=== PATIENT | male | born 1995 | race Caucasian/White ===

== ENCOUNTER 2019-05-07 19:50 | Emergency (ER) | payer OTHER ==
[2019-05-07] MEDS ORDERED: Sodium Chloride 0.9% 2.5 ML Syringe FLUSH PRN (20:01)
[2019-05-07] MEDS ORDERED: Sodium Chloride 0.9% 10 ML Syringe FLUSH PRN (20:01)
[2019-05-07] MEDS ORDERED: Sodium Chloride 0.9% 1,000 ML IV ONE (20:01)
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
[2019-05-07 20:41] LABS: CHLORIDE,CL 101 mmol/L (98-107); SODIUM,NA 138 mmol/L (136-148)
--- NOTE | 2019-05-07 22:07 | CR ---
HISTORY: Chest pain and shortness of breath. COMPARISON: 03/22/2018 FINDINGS: A portable erect AP view of the chest was obtained at 21 53 hours. During the interval, the patchy infiltrate in the posterior basilar segment of the left lower lobe has completely resolved. The lungs are clear on today`s study. The heart remains normal in size. The mediastinum is normal in appearance. The osseous structures are normal in appearance for the patient`s age. IMPRESSION: Normal portable chest single view. Complete resolution of previously seen infiltrate in the posterior basilar segment of the left lower lobe. Dictated by Chris Ramirez MD @ May 07 2019 10:05PM Signed by Dr. Chris Ramirez @ May 07 2019 10:06PM
== END 2019-05-07 22:35 | disposition home or self-care (01) ==
LOC: MW.ED 19:50
DX: K29.70 Gastritis, unspecified, without bleeding (principal); E10.9 Type 1 diabetes mellitus without complications; J45.909 Unspecified asthma, uncomplicated; F17.210 Nicotine dependence, cigarettes, uncomplicated; Z79.899 Other long term (current) drug therapy
CPT/HCPCS: 36600; 71045; 80053; 82803; 82962; 83690; 85025; 99284; J7040

== ENCOUNTER 2019-05-07 23:09 | Emergency (ER) | payer OTHER ==
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
== END 2019-05-07 23:59 | disposition home or self-care (01) ==
LOC: MW.ED 23:09
DX: R10.13 Epigastric pain (principal); J45.909 Unspecified asthma, uncomplicated; E10.9 Type 1 diabetes mellitus without complications; F17.210 Nicotine dependence, cigarettes, uncomplicated; Z79.899 Other long term (current) drug therapy; Z79.4 Long term (current) use of insulin; Z88.1 Allergy status to other antibiotic agents
CPT/HCPCS: 82962; 99284

== ENCOUNTER 2019-08-05 14:40 | Emergency (ER) | payer OTHER ==
[2019-08-05] MEDS ORDERED: Sodium Chloride 0.9% 1,000 ML IV ONE (15:30)
[2019-08-05] MEDS ORDERED: Ondansetron 4 MG/2 ML SDV IVPUSH ONE (15:30)
[2019-08-05 15:47] LABS: BLOOD UREA NITROGEN,BUN 6 mg/dL (7.0-18.0); CARBON DIOXIDE,CO2 31.9 mmol/L (21.0-32.0); CHLORIDE,CL 104 mmol/L (98-107); GLUCOSE RANDOM 161 mg/dL (74-106); POTASSIUM,K 3.7 mmol/L (3.5-5.1); SODIUM,NA 143 mmol/L (136-148)
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
== END 2019-08-05 16:42 | disposition home or self-care (01) ==
LOC: MW.ED 14:40
DX: K80.20 Calculus of gallbladder without cholecystitis without obstruction (principal); E10.9 Type 1 diabetes mellitus without complications; F17.210 Nicotine dependence, cigarettes, uncomplicated; Z88.1 Allergy status to other antibiotic agents; Z79.899 Other long term (current) drug therapy
CPT/HCPCS: 80053; 82962; 85025; 96361; 96374; 99283; J2405; J7040; 99282

== ENCOUNTER 2019-08-05 17:45 | Emergency (ER) | payer OTHER ==
[2019-08-05] MEDS ORDERED: Ketorolac 30 MG/ML SDV IVPUSH ONE (17:49)
[2019-08-05] MEDS ORDERED: fentaNYL 50 MCG/ML SDV IVPUSH ONE ×2 (17:49→19:24)
[2019-08-05] MEDS ORDERED: fentaNYL 100 MCG/2 ML SDV ONE ×2 (18:02→19:27)
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
--- NOTE | 2019-08-05 19:31 | US ---
INDICATION: Epigastric pain TECHNIQUE: Ultrasound abdomen limited. Sonographic images of the right upper quadrant were obtained using johnson-scale and color Doppler images. COMPARISON: 05/08/2019 FINDINGS: Liver: Normal in size with mild diffuse fatty infiltration.. No masses. No intrahepatic biliary dilatation. Gallbladder: No stones or sludge. Two gallbladder polyps. Normal wall thickness. No pericholecystic fluid. Positive sonographic Chew sign. Common bile duct: 4 mm. Pancreas: Normal. Right kidney: size cm. Normal echotexture and cortex. No masses, stones, or hydronephrosis. Vasculature: Proximal IVC is normal. IMPRESSION: Diffuse fatty infiltration of the liver. Gallbladder polyps in an otherwise normal appearing gallbladder. Normal common bile duct. Dictated by Daniel Cohen MD @ 08/05/2019 7:26:40 PM Dictated by: Daniel Cohen MD @ 08/05/2019 19:29:25 (Electronically Signed)
[2019-08-05 20:18] LABS: LIPASE 48 U/L (73-393)
--- NOTE | 2019-08-05 20:40 | CT ---
INDICATION: Epigastric pain for 24 hours. COMPARISON: Ultrasound of the abdomen from today. TECHNIQUE: CT examination of the abdomen and pelvis was performed without contrast enhancement using 3 mm thick axial sections from the lung bases through the pubic symphysis. Oral contrast was not administered. Please note that all CT scans at this facility use dose modulation, iterative reconstruction, and/or weight-based dosing when appropriate to reduce radiation dose to as low as reasonably achievable. FINDINGS: In the abdomen, the unenhanced liver is mildly enlarged, reaching the superior iliac crest. It measures 19.0 centimeters in length. The spleen, pancreas, and adrenals are normal in appearance. The unenhanced kidneys are normal in appearance. The gallbladder is normal in appearance. The abdominal aorta is normal in caliber with no sign of dilatation. There is no sign of retroperitoneal mass or adenopathy. The stomach, loops of small bowel, and colon in the abdomen are normal in appearance. In the pelvis, the retrocecal appendix is normal in appearance with no sign of inflammatory process. The loops of small bowel and colon in the pelvis are normal in appearance. The prostate is normal in appearance. There is a small amount of free fluid in the right inferior pelvis, nonspecific. There is no sign of any free air or extraluminal air. The urinary bladder is normal in appearance. There is no sign of pelvic or inguinal mass or adenopathy. The lung bases are clear. The osseous structures are normal in appearance for the patient`s age. IMPRESSION: CT of the abdomen shows mild enlargement of the otherwise normal-appearing liver. The liver measures 19.0 centimeters in length and reaches the superior iliac crest. Normal size and appearance of the spleen. CT of the pelvis shows a small amount of free fluid in the right inferior pelvis, nonspecific. No signs of any free air in the abdomen or pelvis. Please note that all CT scans at this facility use dose modulation, iterative reconstruction, and/or weight-based dosing when appropriate to reduce radiation dose to as low as reasonably achievable. Dictated by Chris Ramirez MD @ Aug 05 2019 8:32PM Signed by Dr. Chris Ramirez @ Aug 05 2019 8:38PM
== END 2019-08-05 21:10 | disposition home or self-care (01) ==
LOC: MW.ED 17:45
DX: E10.43 Type 1 diabetes mellitus with diabetic autonomic (poly)neuropathy (principal); K31.84 Gastroparesis; F17.210 Nicotine dependence, cigarettes, uncomplicated; Z88.1 Allergy status to other antibiotic agents; Z79.899 Other long term (current) drug therapy
CPT/HCPCS: 36415; 74176; 76705; 82150; 83690; 96374; 96375; 96376; 99284; J1885; J3010

== ENCOUNTER 2019-10-15 18:18 | Emergency (ER) | payer OTHER ==
[2019-10-15] MEDS ORDERED: Ondansetron 4 MG/2 ML SDV IVPUSH ONE (18:35)
[2019-10-15] MEDS ORDERED: Sodium Chloride 0.9% 1,000 ML IV ONE ×3 (18:35→20:32)
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
[2019-10-15 19:30] LABS: BLOOD UREA NITROGEN,BUN 17 mg/dL (7.0-18.0); CARBON DIOXIDE,CO2 19.3 mmol/L (21.0-32.0); CHLORIDE,CL 97 mmol/L (98-107); GLUCOSE RANDOM 302 mg/dL (74-106); LIPASE 31 U/L (73-393); POTASSIUM,K 4.2 mmol/L (3.5-5.1); SODIUM,NA 133 mmol/L (136-148)
--- NOTE | 2019-10-15 19:57 | CR ---
INDICATION: Nausea and vomiting. Shortness of breath. TECHNIQUE: AP upright portable chest. COMPARISON: May 07, 2019. FINDINGS: Clear lungs. Normal heart size and pulmonary vascularity. Normal included skeletal thorax. IMPRESSION: Stable and negative chest x-ray. Dictated by Deovn Minor MD @ Oct 15 2019 7:55PM Signed by Dr. Devon Minor @ Oct 15 2019 7:55PM
[2019-10-15] MEDS ORDERED: Iopamidol 755 MG/ML 500 ML Multipack Bottle IVPUSH STA (20:21)
--- NOTE | 2019-10-15 20:39 | CT ---
INDICATION: Nausea, vomiting, diarrhea for 1 day. Abdominal pain. History of gallbladder problems. Diarrhea for 9 months. COMPARISON: CT of the abdomen and pelvis from 08/05/2019. TECHNIQUE: CT examination of the abdomen and pelvis was performed with the uneventful intravenous administration of 100 cc of Isovue 370 while 3 mm thick axial sections were obtained from the lung bases through the pubic symphysis. Oral contrast was not administered. Please note that all CT scans at this facility use dose modulation, iterative reconstruction, and/or weight-based dosing when appropriate to reduce radiation dose to as low as reasonably achievable. FINDINGS: In the abdomen, the liver remains mildly enlarged, measuring 19.4 centimeters in length, previously 19.0 centimeters, reaching the superior iliac crest. There is no sign of hepatic mass or fatty infiltration. The spleen remains normal in size and appearance. The pancreas and adrenals are normal in appearance. The kidneys are normal in appearance. The gallbladder is normal in appearance. The abdominal aorta is normal in caliber with no sign of dilatation. There is no sign of retroperitoneal mass or adenopathy. The stomach, loops of small bowel, and colon in the abdomen are normal in appearance. In the pelvis, the appendix is normal in appearance with no sign of inflammatory process. The loops of small bowel and colon in the pelvis are normal in appearance. The prostate is normal in appearance. The urinary bladder is normal in appearance. There is no sign of pelvic or inguinal mass or adenopathy. There is no sign of free fluid or free air in the abdomen or pelvis. The previously seen small amount of free fluid in the right pelvis has resolved. The lung bases are clear. The osseous structures are normal in appearance for the patient`s age. IMPRESSION: Nothing seen to correlate with the history of nausea, vomiting, or diarrhea. Normal appearance of the stomach, loops of small bowel, and colon, with no sign of colitis or enteritis. CT of the abdomen shows no change in mild enlargement of the liver. The spleen remains normal in size. Normal CT of the pelvis with contrast. Resolution of the previously seen small amount of free fluid in the right pelvis. Please note that all CT scans at this facility use dose modulation, iterative reconstruction, and/or weight-based dosing when appropriate to reduce radiation dose to as low as reasonably achievable. Dictated by Chris Ramirez MD @ Oct 15 2019 8:31PM Signed by Dr. Chris Ramirez @ Oct 15 2019 8:39PM
== END 2019-10-15 21:40 | disposition home or self-care (01) ==
LOC: MW.ED 18:18
DX: R19.7 Diarrhea, unspecified (principal); R11.10 Vomiting, unspecified; E10.69 Type 1 diabetes mellitus with other specified complication; D72.829 Elevated white blood cell count, unspecified; Z88.8 Allergy status to other drugs, medicaments and biological substances
CPT/HCPCS: 36600; 71045; 74177; 80053; 81003; 82009; 82803; 82962; 83605; 83690; 85025; 87040; 87046; 87328; 87329; 87493; 96361; 96374; 99284; J2405; J7030; Q9967; 87077; 87324; 87899

== ENCOUNTER 2020-02-03 22:56 | Emergency (ER) | payer OTHER ==
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
== END 2020-02-03 23:48 | disposition home or self-care (01) ==
LOC: MW.ED 22:56
DX: S90.122A Contusion of left lesser toe(s) without damage to nail, initial encounter (principal); J45.909 Unspecified asthma, uncomplicated; E10.9 Type 1 diabetes mellitus without complications; Z88.8 Allergy status to other drugs, medicaments and biological substances; Z79.899 Other long term (current) drug therapy; W50.0XXA Accidental hit or strike by another person, initial encounter
CPT/HCPCS: 73630-26-LT; 73630-LT; 99283-25

== ENCOUNTER 2021-05-31 18:33 | Emergency (ER) | payer OTHER, BC ==
[2021-05-31] MEDS: Ketorolac 15 MG/ML SDV IM STA (20:15)
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
== END 2021-05-31 21:27 | disposition home or self-care (01) ==
LOC: MW.ED 18:33
DX: R07.89 Other chest pain (principal); J45.909 Unspecified asthma, uncomplicated; E10.43 Type 1 diabetes mellitus with diabetic autonomic (poly)neuropathy; K31.84 Gastroparesis; Z88.1 Allergy status to other antibiotic agents; Z79.899 Other long term (current) drug therapy; V40.5XXA Car driver injured in collision with pedestrian or animal in traffic accident, initial encounter; Y92.79 Other farm location as the place of occurrence of the external cause
CPT/HCPCS: 71101; 96372; 99284; J1885

== ENCOUNTER 2021-11-27 10:11 | Emergency (ER) | payer BC ==
[2021-11-27] MEDS ORDERED: Albuterol/Ipratropium 3.0-0.5 MG/3 ML Neb Soln NEB ONE (10:41)
[2021-11-27 11:11] LABS: CORONAVIRUS COVID-19 NAA NEGATIVE (NEGATIVE); INFLUENZA A NAA NEGATIVE (NEGATIVE); INFLUENZA B NAA NEGATIVE (NEGATIVE)
[2021-11-27 11:19] LABS: BLOOD UREA NITROGEN,BUN 17 mg/dL (7.0-18.0); CARBON DIOXIDE,CO2 25.8 mmol/L (21.0-32.0); CHLORIDE,CL 94 mmol/L (98-107); POTASSIUM,K 5.4 mmol/L (3.5-5.1); SODIUM,NA 129 mmol/L (136-148)
[2021-11-27 11:22] LABS: GLUCOSE RANDOM 657 mg/dL (74-106)
[2021-11-27] MEDS ORDERED: Sodium Chloride 0.9% 1,000 ML IV ONE ×2 (11:27→12:06)
[2021-11-27] MEDS ORDERED: Sodium Chloride 0.9% 2.5 ML Syringe FLUSH PRN (11:27)
[2021-11-27] MEDS ORDERED: Sodium Chloride 0.9% 10 ML Syringe FLUSH PRN (11:27)
[2021-11-27] MEDS ORDERED: 50% Dextrose in Water 50 ML Syringe IVPUSH PRN (11:29)
[2021-11-27] MEDS ORDERED: Insulin Regular, Human 100 Units/ML 10 ML Vial IVPUSH ONE (11:29)
[2021-11-27] MEDS ORDERED: Glucagon,Human Recombinant 1 MG Vial IM PRN (11:29)
[2021-11-27 14:46] LABS: BLOOD UREA NITROGEN,BUN 16 mg/dL (7.0-18.0); CHLORIDE,CL 100 mmol/L (98-107); GLUCOSE RANDOM 448 mg/dL (74-106); POTASSIUM,K 5.5 mmol/L (3.5-5.1); SODIUM,NA 134 mmol/L (136-148)
== END 2021-11-27 15:37 | disposition home or self-care (01) ==
LOC: MW.ED 10:11
DX: J45.901 Unspecified asthma with (acute) exacerbation (principal); E87.1 Hypo-osmolality and hyponatremia; E10.65 Type 1 diabetes mellitus with hyperglycemia; E10.43 Type 1 diabetes mellitus with diabetic autonomic (poly)neuropathy; K31.84 Gastroparesis; Z72.0 Tobacco use; Z88.1 Allergy status to other antibiotic agents; Z79.899 Other long term (current) drug therapy; Z20.822 Contact with and (suspected) exposure to COVID-19
CPT/HCPCS: 0240U; 36415; 71045; 80048; 80053; 82009; 82947; 83605; 85025; 99285; J1815; J7030; J7620-GY

== ENCOUNTER 2022-01-01 10:07 | Emergency (ER) | payer BC ==
[2022-01-01] MEDS ORDERED: Ondansetron 4 MG/2 ML SDV IVPUSH ONE (10:18)
[2022-01-01] MEDS ORDERED: Sodium Chloride 0.9% 1,000 ML IV ONE (10:18)
[2022-01-01] MEDS ORDERED: Morphine 4 MG/ML VIAL IVPUSH ONE (10:21)
[2022-01-01 10:44] LABS: BLOOD UREA NITROGEN,BUN 14 mg/dL (7.0-18.0); CARBON DIOXIDE,CO2 28.2 mmol/L (21.0-32.0); CHLORIDE,CL 102 mmol/L (98-107); GLUCOSE RANDOM 149 mg/dL (74-106); LIPASE 49 U/L (73-393); POTASSIUM,K 4.2 mmol/L (3.5-5.1); SODIUM,NA 141 mmol/L (136-148)
[2022-01-01] MEDS ORDERED: Ketorolac 30 MG/ML SDV IVPUSH ONE (10:45)
[2022-01-01 11:13] LABS: CORONAVIRUS COVID-19 NAA NEGATIVE (NEGATIVE); INFLUENZA A NAA NEGATIVE (NEGATIVE); INFLUENZA B NAA NEGATIVE (NEGATIVE)
[2022-01-01] MEDS ORDERED: Tamsulosin 0.4 MG Cap.ER PO ONE (12:12)
[2022-01-01] MEDS ORDERED: Iopamidol 755 MG/ML 500 ML Multipack Bottle IVPUSH ONE (18:42)
== END 2022-01-01 13:22 | disposition home or self-care (01) ==
LOC: MW.ED 10:07
DX: N13.2 Hydronephrosis with renal and ureteral calculous obstruction (principal); J45.909 Unspecified asthma, uncomplicated; E10.9 Type 1 diabetes mellitus without complications; Z88.1 Allergy status to other antibiotic agents; Z79.899 Other long term (current) drug therapy; Z20.822 Contact with and (suspected) exposure to COVID-19
CPT/HCPCS: 0240U; 36415; 74178; 80053; 81001; 83690; 85025; 96374; 96375; 99284; A9270; J1885; J2270; J2405; J7030; Q9967; 99283

== ENCOUNTER 2022-06-02 22:18 | Emergency (ER) | payer BC ==
[2022-06-02] MEDS ORDERED: Sodium Chloride 0.9% 1,000 ML IV ONE ×2 (22:21→23:24)
[2022-06-02 22:57] LABS: ACETAMINOPHEN <2.0 ug/mL; BLOOD UREA NITROGEN,BUN 19 mg/dL (7.0-18.0); CARBON DIOXIDE,CO2 21.7 mmol/L (21.0-32.0); CHLORIDE,CL 97 mmol/L (98-107); LIPASE 126 U/L (73-393); POTASSIUM,K 4.3 mmol/L (3.5-5.1); SODIUM,NA 134 mmol/L (136-148)
[2022-06-02 23:00] LABS: ESTIMATED GFR 93 mL/min (>60); GLUCOSE RANDOM 542 mg/dL (74-106)
[2022-06-02] MEDS ORDERED: Insulin Regular, Human 100 Units/ML 10 ML Vial IVPUSH ONE (23:24)
[2022-06-02] MEDS ORDERED: 50% Dextrose in Water 50 ML Syringe IVPUSH PRN (23:24)
[2022-06-02] MEDS ORDERED: Glucagon,Human Recombinant 1 MG Vial IM PRN (23:24)
== END 2022-06-03 00:57 | disposition home or self-care (01) ==
LOC: MW.ED 22:18
DX: R41.82 Altered mental status, unspecified (principal); E10.9 Type 1 diabetes mellitus without complications; Z20.822 Contact with and (suspected) exposure to COVID-19; Z79.4 Long term (current) use of insulin
CPT/HCPCS: 36415; 70450; 71045; 80053; 80143; 80179; 80305; 80307; 81003; 82009; 82803; 82947; 83605; 83690; 83735; 84443; 84484; 85025; 85610; 85730; 87040; 87635; 93005; 96360; 96361; 99285; J7030; 93010; J1815-GY; U0002

== ENCOUNTER 2022-09-18 11:01 | Emergency (ER) | payer BC ==
[2022-09-18] MEDS ORDERED: Dexamethasone 10 MG/ML SDV IM STA (11:20)
[2022-09-18] MEDS ORDERED: Albuterol/Ipratropium 3.0-0.5 MG/3 ML Neb Soln NEB ONE (11:20)
[2022-09-18 12:07] LABS: CORONAVIRUS COVID-19 NAA NEGATIVE (NEGATIVE); INFLUENZA A NAA NEGATIVE (NEGATIVE); INFLUENZA B NAA NEGATIVE (NEGATIVE)
== END 2022-09-18 12:52 | disposition home or self-care (01) ==
LOC: MW.ED 11:01
DX: J45.901 Unspecified asthma with (acute) exacerbation (principal); E10.9 Type 1 diabetes mellitus without complications; Z88.1 Allergy status to other antibiotic agents; Z79.899 Other long term (current) drug therapy; Z20.822 Contact with and (suspected) exposure to COVID-19
CPT/HCPCS: 0240U; 71045; 94640; 96372; 99285; J1100; J7620-GY

== ENCOUNTER 2023-01-29 11:04 | Emergency (ER) | payer BC | END 2023-01-29 13:58 | disposition left against medical advice (07) | LOC: MW.ED 11:04 | DX: Z53.21 Procedure and treatment not carried out due to patient leaving prior to being seen by health care provider (principal) ==

== ENCOUNTER 2023-07-08 10:13 | Inpatient (IN) | payer BC ==
[2023-07-08] MEDS ORDERED: diphenhydrAMINE 50 MG/ML SDV IVPUSH ONE (10:23)
[2023-07-08] MEDS ORDERED: Sodium Chloride 0.9% 1,000 ML IV ONE (10:23)
[2023-07-08] MEDS ORDERED: Prochlorperazine 10 MG/2 ML SDV IVPUSH ONE (10:23)
[2023-07-08] MEDS: Sodium Chloride 0.9% 10 ML Syringe FLUSH PRN ×2 (10:35→10:44)
[2023-07-08] MEDS: Sodium Chloride 0.9% 2.5 ML Syringe FLUSH PRN ×2 (10:35→10:44)
[2023-07-08 10:50] LABS: BASE EXCESS VENOUS -10.9 (-2.0-3.0); PH,VENOUS 7.24 (7.31-7.41)
[2023-07-08] MEDS ORDERED: Sodium Chloride 0.9% 10 ML Syringe FLUSH PRN (10:57)
[2023-07-08] MEDS ORDERED: Sodium Chloride 0.9% 20 ML SDV IV PRN (10:57)
[2023-07-08] MEDS ORDERED: Sodium Chloride 0.9% 2.5 ML Syringe FLUSH PRN (10:57)
[2023-07-08 10:58] LABS: BASOPHILS ABSOLUTE AUTO 0.1 K/uL (0.0-0.1); BASOPHILS PERCENT AUTO 0.4 % (0.0-1.5); EOSINOPHILS ABSOLUTE AUTO 0.1 K/uL (0.0-0.7); EOSINOPHILS PERCENT AUTO 0.4 % (0.0-7.0); HEMATOCRIT 48.1 % (38.0-50.0); HEMOGLOBIN 15.9 g/dL (13.0-17.0); LYMPHOCYTES ABSOLUTE AUTO 1.5 K/uL (0.6-2.4); LYMPHOCYTES PERCENT AUTO 10.8 % (16.0-40.0); MEAN CORPUSCULAR HEMOGLOBIN 32.6 pg (27.0-32.0); MEAN CORPUSCULAR HGB CONC 33.1 g/dL (31.0-37.0); MEAN CORPUSCULAR VOLUME 98.8 fL (80.0-98.0); MONOCYTES ABSOLUTE AUTO 0.3 K/uL (0.0-0.8); MONOCYTES PERCENT AUTO 2.4 % (0.0-15.0); NEUTROPHILS ABSOLUTE AUTO 11.6 K/uL (1.4-5.7); NRBC ABSOLUTE 0 K/uL; PLATELET COUNT,PLT 462 K/uL (150-400); RED BLOOD CELL COUNT 4.87 M/uL (4.50-5.90)
[2023-07-08 11:10] LABS: APPEARANCE,URINE CLEAR; BILIRUBIN,URINE NEGATIVE (NEGATIVE); GLUCOSE,URINE >=1000 mg/dL (NEGATIVE); KETONES,URINE >=80 mg/dL (NEGATIVE); LEUKOCYTE ESTERASE,URINE NEGATIVE (NEGATIVE); NITRITE,URINE NEGATIVE (NEGATIVE); OCCULT BLOOD,URINE NEGATIVE (NEGATIVE); PH,URINE 5.5 (5.0-8.0); PROTEIN,URINE NEGATIVE (NEGATIVE); UROBILINOGEN,URINE 0.2 EU/dL (<2.0)
[2023-07-08] MEDS ORDERED: Insulin Regular in 0.9 % NACL 100 ML IV SCH ×2 (11:11→13:15)
[2023-07-08 11:13] LABS: COLOR,URINE STRAW
[2023-07-08 11:16] LABS: ALANINE AMINOTRANSFERASE,ALT 82 IU/L (14-63); ALBUMIN 4.3 g/dL (3.4-5.0); ALKALINE PHOSPHATASE 257 U/L (46-116); ASPARTATE AMNIOTRANSFERASE,AST 69 IU/L (15-37); BILIRUBIN TOTAL 0.6 mg/dL (0.2-1.0); BLOOD UREA NITROGEN,BUN 21 mg/dL (7.0-18.0); CALCIUM 9.4 mg/dL (8.5-10.1); CHLORIDE,CL 94 mmol/L (98-107); CREATININE 1.3 mg/dL (0.8-1.3); EST CRCL DRUG DOSING (CG) 77.29 mL/min; GLUCOSE RANDOM 490 mg/dL (74-106); LIPASE 19 U/L (16-77); MAGNESIUM 2.3 mg/dL (1.8-2.4); PHOSPHORUS 5.6 mg/dL (2.6-4.7); POTASSIUM,K 4.9 mmol/L (3.5-5.1); PROTEIN TOTAL,TP 8.7 g/dL (6.4-8.2); SODIUM,NA 135 mmol/L (136-148)
[2023-07-08 11:18] LABS: BACTERIA,URINE NOT SEEN (NEGATIVE); EPITHELIAL CELLS,URINE OCCASIONAL (NONE-FEW); ESTIMATED GFR 76 mL/min (>60); LACTIC ACID 2.6 mmol/L (0.4-2.0); RBC,URINE 0-1 (0-2/HPF); WBC,URINE 0-2 (0-5/HPF)
[2023-07-08 11:33] LABS: HEMOGLOBIN A1C 9.9 %
[2023-07-08 11:48] LABS: POTASSIUM,K 4.3 mmol/L (3.5-5.1)
[2023-07-08] MEDS ORDERED: Sodium Chloride 0.9% 1,000 ML IV SCH (12:46)
[2023-07-08] MEDS: Dextrose 5%-0.9% NaCl 1,000 ML IV SCH ×3 (13:35→23:06)
[2023-07-08 15:12] LABS: BLOOD UREA NITROGEN,BUN 20 mg/dL (7.0-18.0); CALCIUM 8.5 mg/dL (8.5-10.1); CARBON DIOXIDE,CO2 23.5 mmol/L (21.0-32.0); CHLORIDE,CL 105 mmol/L (98-107); GLUCOSE RANDOM 156 mg/dL (74-106); POTASSIUM,K 4.2 mmol/L (3.5-5.1); SODIUM,NA 141 mmol/L (136-148)
[2023-07-08 15:13] LABS: ESTIMATED GFR 104 mL/min (>60)
[2023-07-08] MEDS: Enoxaparin 40 MG/0.4 ML Syringe SUBCUT SCH (16:28)
[2023-07-08 19:20] LABS: CALCIUM 8.1 mg/dL (8.5-10.1); CARBON DIOXIDE,CO2 22.9 mmol/L (21.0-32.0); CREATININE 1.1 mg/dL (0.8-1.3); EST CRCL DRUG DOSING (CG) 81.08 mL/min; POTASSIUM,K 3.8 mmol/L (3.5-5.1)
[2023-07-08] MEDS ORDERED: 50% Dextrose in Water 50 ML Syringe IVPUSH PRN (23:14)
[2023-07-08] MEDS ORDERED: Glucagon,Human Recombinant 1 MG Vial IM PRN (23:14)
[2023-07-08] MEDS ORDERED: Insulin Glargine,Hum.Rec.Anlog 100 UNIT/ML 3 ML Pen SUBCUT SCH (23:15)
[2023-07-08 23:30] LABS: CARBON DIOXIDE,CO2 24.7 mmol/L (21.0-32.0); CREATININE 0.9 mg/dL (0.8-1.3); EST CRCL DRUG DOSING (CG) 99.1 mL/min; POTASSIUM,K 3.2 mmol/L (3.5-5.1)
[2023-07-09] MEDS: Insulin Aspart 100 Units/ML 3 ML Pen SUBCUT SCH ×4 (02:26→12:15)
[2023-07-09 06:15] LABS: BASOPHILS PERCENT AUTO 0.4 % (0.0-1.5); EOSINOPHILS ABSOLUTE AUTO 0.2 K/uL (0.0-0.7); EOSINOPHILS PERCENT AUTO 2.3 % (0.0-7.0); HEMATOCRIT 39.2 % (38.0-50.0); LYMPHOCYTES ABSOLUTE AUTO 1.8 K/uL (0.6-2.4); LYMPHOCYTES PERCENT AUTO 17.3 % (16.0-40.0); MEAN CORPUSCULAR HEMOGLOBIN 31.7 pg (27.0-32.0); MEAN CORPUSCULAR HGB CONC 33.2 g/dL (31.0-37.0); MEAN CORPUSCULAR VOLUME 95.6 fL (80.0-98.0); MONOCYTES ABSOLUTE AUTO 1.2 K/uL (0.0-0.8); MONOCYTES PERCENT AUTO 11.8 % (0.0-15.0); NEUTROPHILS ABSOLUTE AUTO 7.1 K/uL (1.4-5.7); NEUTROPHILS PERCENT AUTO 68.2 % (48.0-80.0); NRBC ABSOLUTE 0 K/uL; PLATELET COUNT,PLT 360 K/uL (150-400); WHITE BLOOD CELL COUNT,WBC 10.39 K/uL (4.0-11.0)
[2023-07-09 06:33] LABS: CALCIUM 8.2 mg/dL (8.5-10.1); CARBON DIOXIDE,CO2 23.8 mmol/L (21.0-32.0); CREATININE 0.8 mg/dL (0.8-1.3); EST CRCL DRUG DOSING (CG) 111.48 mL/min; POTASSIUM,K 3.1 mmol/L (3.5-5.1)
[2023-07-09] MEDS ORDERED: Potassium Chloride 20 MEQ Tab.ER PO ONE (07:26)
[2023-07-09 12:22] LABS: HEMOGLOBIN A1C 11.7 %
[2023-07-09] MEDS: Enoxaparin 40 MG/0.4 ML Syringe SUBCUT SCH (16:27)
== END 2023-07-09 16:40 | disposition home or self-care (01) | DRG 420 ==
LOC: MW.ED 10:13 → MW.ICU 12:39 → MW.MS 07-09 11:49
PROVIDERS: ADMIT Internal Medicine; ATTEND Internal Medicine
PROC: 3E033VG Introduction of Insulin into Peripheral Vein, Percutaneous Approach (ICD-10-PCS; principal; 2023-07-08)
DX: E10.10 Type 1 diabetes mellitus with ketoacidosis without coma (principal); J45.909 Unspecified asthma, uncomplicated; A05.9 Bacterial foodborne intoxication, unspecified; M19.90 Unspecified osteoarthritis, unspecified site; F41.9 Anxiety disorder, unspecified; F17.210 Nicotine dependence, cigarettes, uncomplicated; E86.0 Dehydration; Z88.8 Allergy status to other drugs, medicaments and biological substances; Z79.4 Long term (current) use of insulin
CPT/HCPCS: 36415; 71045; 71045-26; 80048; 80053; 81001; 82009; 82803; 82947; 83036; 83605; 83690; 83735; 84100; 84132; 84484; 85025; 87040; 93005; 93010; 96374; 96375; 99291; A9270-GY; J0780; J1200; J1650; J1815; J1815-GY; J3490; J7030; J7042